=== PATIENT | male | born 1985 | race African-American/Black ===

== ENCOUNTER 2019-05-28 10:51 | Emergency (ER) | payer OTHER ==
[~2019-05-28] VITALS: Ht 162.6 cm; Wt 59.0 kg
[2019-05-28 11:04] VITALS: BP 119/74
--- NOTE | 2019-05-28 11:50 | Emergency Room Report ---
History of Present Illness General Chief Complaint: Earache Source: Patient Present Illness HPI Patient presents with feeling of fullness and ringing in the right ear this been present for 2 to 3 days. He denies any fevers. He did feel feverish and had sweating when symptoms became slightly worse. He denies sore throat. Aside from the ringing in his right ear his hearing is normal. He denies headache. He took [id number] Tylenol yesterday which had little effect. He is never had this problem before. Patient smokes THC. Patient denies major medical problems. No chest pain, palpitations, nausea, vomiting, diarrhea, dysuria, abdominal pain , shortness of breath, joint pain, rashes, depression, anxiety, visual changes. 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 Reviewed Nursing Documentation: PMH: Agreed; PSxH: Agreed Nursing Documentation-PMH Past Medical History: No History, Except For Review of Systems All Other Systems: negative except mentioned in HPI Physical Exam Vital Signs Date Time Temp Pulse Resp B/P (MAP) Pulse Ox O2 Delivery O2 Flow Rate FiO2 05/28/19 10:59 98.2 85 18 119/74 (89) 99 Room Air Sp02 EP Interpretation: reviewed, normal General Appearance: well appearing, no apparent distress, GCS 15, non-toxic Head: normocephalic Eyes: bilateral eye normal inspection, bilateral eye PERRL, bilateral eye EOMI - No nystagmus ENT: hearing grossly normal, normal pharynx, TMs + canals normal, moist mucus membranes, other - No pinna tenderness and no mastoid tenderness Neck: full range of motion, supple Respiratory: lungs clear, speaking full sentences Cardiovascular #1: regular rate, rhythm Cardiovascular #2: 2+ radial (R) Gastrointestinal: normal inspection Musculoskeletal: gait/station normal Neurologic: alert, oriented x3, recruiting associate III-XII nml as tested, motor strength/tone normal, sensory intact, cerebellar normal, normal gait, speech normal Psychiatric: mood/affect normal Skin: no rash Medical Decision Making Diagnostic Impression: Primary Impression: Tinnitus Qualified Codes: H93.11 - Tinnitus, right ear ER Course Patient presents with tinnitus right ear. Exam is remarkable for lack of otitis media or otitis externa. Patient is afebrile. There is no evidence of acute bacterial infection at this time. Treatment will focus on decreasing inflammation in the ear and also a mild antihistamine. Antibiotics are not indicated. No major comorbidities. Discussed findings with patient and the need to follow-up with his private doctor. Also advised to stop smoking THC and suggested edibles. Patient stable for outpatient observation and treatment. Last Vital Signs Date Time Temp Pulse Resp B/P (MAP) Pulse Ox O2 Delivery O2 Flow Rate FiO2 05/28/19 11:04 98.2 85 18 119/74 99 Room Air Status: unchanged Disposition: HOME, SELF-CARE Condition: Stable Scripts Chlorpheniramine Maleate (CHLOR-TRIMETON) 4 Mg Tablet 4 MG PO Q6HR PRN for ringing or ear fullness, #20 TAB Prov: Bandar Petit MD 05/28/19 Ibuprofen* (MOTRIN*) 600 Mg Tablet 600 MG ORAL Q6H PRN for For Pain, #20 TAB 0 Refills Prov: Bandar Petit MD 05/28/19 Bandar Petit MD May 28, 2019 11:50
[2019-05-28] MEDS ORDERED: CHLOR-TRIMETON4 MG PO (11:53)
[2019-05-28] MEDS ORDERED: IBUPROFEN600 MG ORAL (11:53)
--- NOTE | 2019-05-28 12:06 | NUR ---
ED Nurse Note: Patient is being discharged from medical care. D/C instruction and prescription given. All questions were answered. Ambulated out with steady gait with all his belongings.
== END 2019-05-28 12:00 | disposition home or self-care (01) ==
LOC: EMR 11:33
DX: H93.11 Tinnitus, right ear (principal)
CPT/HCPCS: 99282